=== PATIENT | male | born 1990 | race Caucasian/White ===

== ENCOUNTER 2020-12-01 14:40 | Emergency (ER) | payer MEDICAID ==
[~2020-12-01] VITALS: Ht 170.2 cm; Wt 76.2 kg
[2020-12-01 14:40] VITALS: BP_SYST 138
[2020-12-01] MEDS ORDERED: POLYTRIM LEFT EYE (17:51)
[2020-12-01 18:00] VITALS: BP_SYST 138
== END 2020-12-01 18:00 | disposition home or self-care (01) ==
LOC: SED 14:40
DX: H10.9 Unspecified conjunctivitis (principal); Z79.899 Other long term (current) drug therapy
CPT/HCPCS: 99283